=== PATIENT | male | born 1955 | race Caucasian/White ===

== ENCOUNTER 2020-03-03 10:17 | Day surgery (SDC) | payer OTHER ==
[~2020-03-03] VITALS: Ht 180.3 cm; Wt 80.3 kg
--- NOTE | ~2020-03-03 | O ---
[facility] [place] [address] OPERATIVE REPORT Name: CRISTINE DURAN Room #: 150-2 [facility].#: [id number] Admission: 03/03/20 Attend Phys: Feliz Bernal MD Discharge: Date of : 51 Report #: [id number] THIS REPORT FOR: cc: MEGAN TABARES Physician not on staff Feliz Bernal MD ~ CC: Feliz Bernal Physician staff MEGAN TABARES DATE OF SERVICE: 03/03/2020 PREOPERATIVE DIAGNOSES: 1. Left hallux valgus. 2. Left bunionette deformity. POSTOPERATIVE DIAGNOSES: 1. Left hallux valgus. 2. Left bunionette deformity. PROCEDURES: 1. Left foot revision Lapidus procedure with Lapiplasty. 2. Left foot Osvaldo osteotomy first proximal phalanx. 3. Left foot fifth metatarsal Chevron osteotomy. SURGEON: Feliz Bernal MD OIL WELL CABLE TOOL OPERATOR: Rosangela Caro. ANESTHESIA: General. ESTIMATED BLOOD LOSS: Minimal. DRAINS: No drains. TOURNIQUET TIME: 2 hours. DESCRIPTION OF PROCEDURE: The patient brought to the operating room where he was placed under general anesthesia. Once under adequate general anesthesia, his left lower extremity was prepped and draped in sterile manner. The extremity was elevated, exsanguinated, tourniquet placed 300 mmHg. Dorsal incision, the patient's previous scar was then made. This was dissected down through soft tissue to the dorsal plate on his first TMT joint. The plate was then completely exposed and the screws were removed from the plate with the small Star screwdriver. Once removed, the plate itself was removed. The first TMT joint was then exposed and subsequently freed utilizing osteotomes and a [facility] [address] [address] OPERATIVE REPORT Name: CRISTINE DURAN Room #: 150-2 [facility] M..#: [id number] Admission: 03/03/20 Attend Phys: Feliz Bernal MD Discharge: Date of : 51 Report #: [id number] sagittal saw. A pin was then placed in the proximal first metatarsal for rotational alignment. Rotation was able to be well reduced in this manner. The C clamp for the Lapiplasty was then placed and subsequent to this, the cutting guide. The saw cuts were then made and subsequently through a dorsal incision distally, a lateral release of the first MTP joint was achieved utilizing tenotomy scissors and a [place] blade. A 2 cm incision was made and tenotomy scissors were used to release the adductor and any scar tissue surrounding the lateral joint distally. This did allow excellent reduction. Saw cuts had been made proximally and these fragments were then removed with rongeurs. Compression was then placed across the joint. Excellent reduction of the SANDRA and of the joint was achieved. This was compressed after fenestrating the proximal and distal portions of the metatarsal and cuneiform respectively to prepare for fusion. Once compressed, a compression pin was placed and then subsequent fixation with a 4.0 cannulated screw across the first TMT and the 2 dorsal and medial plates for the Lapiplasty were placed. Excellent fixation and alignment was achieved as verified under fluoroscopy. Distal incision over the first MTP joint was then made. This was dissected down through the soft tissue joint capsule, which was incised exposing the medial aspect of the metatarsophalangeal joint and the medial overhang was resected utilizing a sagittal saw. A wire was then placed distally for aligning the Osvaldo osteotomy and subsequently a sagittal saw was used to take a 3-4 mm wedge out of the proximal phalanx to complete the Osvaldo. This was fixed into place with a 3.0 cannulated screw. We then proceeded to the fifth metatarsal and a 3 cm incision was made over the metatarsophalangeal joint of the fifth toe. This was dissected down through the soft tissue to the joint capsule, which was incised in line with the incision exposing the lateral eminence. Lateral eminence was resected with a sagittal saw and subsequently a Chevron-type osteotomy was performed across the fifth metatarsal head utilizing a sagittal saw. This was then translated medially and fixation was achieved with a single 3.0 cannulated screw placed under fluoroscopic guidance. Excellent fixation and alignment was achieved in this manner. Once complete, the wounds were irrigated copiously and closed with 0 Ethibond in the capsular tissue, 2-0 Vicryl was used in subcutaneous tissues and pennie were used for the skin along with nylon distally. The wounds were dressed with Xeroform, 4 x 4s, and sterile soft compressive dressing was placed. Tourniquet was let down approximately 2 hours. Toes were pink and warm with good capillary refill. There were no complications from the procedure. The patient tolerated the procedure well and went to the recovery room without incident. By: [id number] Feliz Bernal MD /orion
[~2020-03-03 10:17] MED LIST: LEVOXYL75 MCG PO
[2020-03-03 12:31] VITALS: BP 134/88
[2020-03-03] MEDS ORDERED: PERCOCET 7.5-31 EAC1 PO (14:55)
[2020-03-03 15:52] VITALS: BP 134/88
== END 2020-03-03 16:55 | disposition home or self-care (01) ==
LOC: OR 10:17 → TBA 10:17 → OR 10:40
DX: M20.12 Hallux valgus (acquired), left foot (principal); M21.622 Bunionette of left foot; E03.9 Hypothyroidism, unspecified; J45.909 Unspecified asthma, uncomplicated; Z98.890 Other specified postprocedural states; Z79.899 Other long term (current) drug therapy
CPT/HCPCS: 50010; 50101; 50386; 50951; 51412; 56524; 56528; 57091; 57180; 57910; 57912; 57964; 57965; 57966; 62110; 62900; 70005